=== PATIENT | male | born 1990 | race African-American/Black ===

== ENCOUNTER 2018-02-24 23:44 | Emergency (ER) | payer MEDICAID, MEDICARE ==
[~2018-02-24] VITALS: Ht 180.3 cm; Wt 85.7 kg
[~2018-02-24 23:44] MED LIST: ACET120S27; PHEN-250
[2018-02-25 00:55] LABS: INR 1.02 (0.9-1.15); Partial Thromboplastin Time 29.6 sec (23.78-33.04); Prothrombin Time 10.9 sec (9.27-12.13)
[2018-02-25 01:04] LABS: Alanine Aminotransferase 127 U/L (16-61); Albumin 4.4 g/dL (3.4-5.0); Anion Gap 15 (5-15); Aspartate Aminotransferase 432 U/L (15-37); BUN/Creatinine Ratio 4.6; Blood Urea Nitrogen 3 mg/dL (7-18); Calcium 8.6 mg/dL (8.5-10.1); Carbon Dioxide 24 mmol/L (21-32); Chloride 101 mmol/L (98-107); GFR African American 187 mL/min; GFR Non-African American 154 mL/min; Glucose 98 mg/dL (74-106); Magnesium 1.9 mg/dL (1.6-2.6); Potassium 3.1 mmol/L (3.5-5.1); Sodium 140 mmol/L (136-145)
[2018-02-25 01:08] LABS: Amphetamine Screen, Urine NEGATIVE (NEGATIVE); Barbiturate Scree,Urine NEGATIVE (NEGATIVE); Benzodiazephine Screen, Urine NEGATIVE (NEGATIVE); Cannabinoid Screen, Urine NEGATIVE (NEGATIVE); Cocaine Screen, Urine NEGATIVE (NEGATIVE); Phencyclidine Screen, Urine NEGATIVE (NEGATIVE)
[2018-02-25 01:13] LABS: Alkaline Phosphatase 93 U/L (45-117); Bilirubin, Total 0.9 mg/dL (0.2-1.0); Total Protein 8.2 g/dL (6.4-8.2)
[2018-02-25 01:17] LABS: Opiate Scree,Urine NEGATIVE (NEGATIVE)
[2018-02-25 01:32] VITALS: BP 145/82
[2018-02-25] MEDS ORDERED: PHENYTOIN IV DILANTIN 1,000 MG in SODIUM CHL 0.9% 250 ML IV ONE (02:30)
[2018-02-25] MEDS ORDERED: SODIUM CHLORIDE 0.9% 3,000 ML IV ONE (03:00)
[2018-02-25] MEDS ORDERED: POTASSIUM CHL 20 Meq TABLET PO ONE (03:00)
== END 2018-02-25 03:22 | disposition home or self-care (01) ==
LOC: ER 23:49
DX: F10.129 Alcohol abuse with intoxication, unspecified (principal); E87.6 Hypokalemia; Y90.8 Blood alcohol level of 240 mg/100 ml or more
CPT/HCPCS: 36415; 71046; 80053; 80185; 80307; 80320; 83735; 84443; 84484; 85610; 85730; 93005; 96365; 99284; J1165; J7030; J7050

== ENCOUNTER 2018-05-14 14:28 | Emergency (ER) | payer OTHER ==
[~2018-05-14] VITALS: Ht 180.3 cm; Wt 83.9 kg
[2018-05-14 14:59] VITALS: BP 120/67
== END 2018-05-14 16:28 | disposition home or self-care (01) ==
LOC: ER 14:28
DX: M79.672 Pain in left foot (principal); M79.671 Pain in right foot; F17.210 Nicotine dependence, cigarettes, uncomplicated; Z79.899 Other long term (current) drug therapy
CPT/HCPCS: 73630

== ENCOUNTER 2018-08-05 23:26 | Emergency (ER) | payer OTHER ==
[~2018-08-05] VITALS: Ht 188 cm; Wt 95.3 kg
[2018-08-06 00:21] LABS: Basophils # (auto) 0.1 uL; Eosinophils # (auto) 0 uL; Monocytes # (auto) 0.4 uL; White Blood Cell 3.3 10^3/uL (4.4-10.8)
[2018-08-06 00:23] LABS: Eosinophils % (auto) 0.3 % (0.0-7.0); Hematocrit 44.6 % (41.0-53.0); Hemoglobin 15.4 g/dL (13.5-17.5); Lymphocytes # (auto) 0.8 uL; Lymphocytes % (auto) 23.4 % (10.0-50.0); Mean Corpuscular Hemoglobin 34.9 pg (28.0-32.0); Mean Corpuscular Hgb Conc. 34.6 g/dL (32.0-36.0); Mean Corpuscular Volume 100.9 fL (80.0-100.0); Neutrophils % (auto) 61.3 % (37.0-80.0); Nucleated Red Blood Cells % 0.1 %; Platelet Count (auto) 81 10^3/uL (140-450); Red Blood Cells 4.42 10^6/uL (4.5-5.90); Red Cell Distribution Width 13.5 % (11.8-14.3)
[2018-08-06 00:37] LABS: Albumin 4.5 g/dL (3.4-5.0); BUN/Creatinine Ratio 4.1; Potassium 3.3 mmol/L (3.5-5.1)
[2018-08-06 00:42] LABS: Bilirubin, Total 0.7 mg/dL (0.2-1.0); Total Protein 8.5 g/dL (6.4-8.2)
[2018-08-06] MEDS ORDERED: SODIUM CHLORIDE 0.9% 1,000 ML IV ONE (01:30)
[2018-08-06] MEDS ORDERED: FOLIC ACID 1 MG, MULTIPLE VITAMIN 10 ML, MAGNESIUM SULF SDV 50% 8 MEQ, THIAMINE INJ 100... INJ ONE ×5 (02:00)
[2018-08-06] MEDS ORDERED: PHENYTOIN IV DILANTIN 1,000 MG in SODIUM CHL 0.9% 250 ML IV ONE (02:00)
[2018-08-06] MEDS ORDERED: PHENYTOIN SODIUM 50 MG/ML 5ML INJ VIAL IV ONE (02:27)
[2018-08-06] MEDS ORDERED: PHENYTOIN SODIUM 50 MG/ML 2ML VIAL IV ONE (02:28)
[2018-08-06 04:05] VITALS: BP 145/89
== END 2018-08-06 04:38 | disposition home or self-care (01) ==
LOC: EDBD 23:26 → ER 23:29
DX: G40.909 Epilepsy, unspecified, not intractable, without status epilepticus (principal); F17.210 Nicotine dependence, cigarettes, uncomplicated; F10.229 Alcohol dependence with intoxication, unspecified; Z91.19 Patient's noncompliance with other medical treatment and regimen; Y90.8 Blood alcohol level of 240 mg/100 ml or more
CPT/HCPCS: 36415; 80053; 80185; 80320; 85025; 96365; 99283; J1165; J7030; J7050

== ENCOUNTER 2018-09-07 20:28 | Emergency (ER) | payer OTHER ==
[~2018-09-07] VITALS: Ht 172.7 cm; Wt 81.6 kg
[2018-09-07] MEDS ORDERED: LORazepam 2MG/ML-1ML VIAL IV ONE (21:45)
[2018-09-07 22:06] LABS: Basophils # (auto) 0 uL; Eosinophils # (auto) 0 uL; Eosinophils % (auto) 0.3 % (0.0-7.0); Lymphocytes # (auto) 0.4 uL; Nucleated Red Blood Cells % 0.1 %
[2018-09-07 22:08] LABS: Basophils % (auto) 0.2 % (0.0-2.0); Hematocrit 41.9 % (41.0-53.0); Hemoglobin 14.7 g/dL (13.5-17.5); Lymphocytes % (auto) 6.3 % (10.0-50.0); Mean Corpuscular Hemoglobin 35.1 pg (28.0-32.0); Mean Corpuscular Hgb Conc. 35.2 g/dL (32.0-36.0); Mean Corpuscular Volume 99.9 fL (80.0-100.0); Monocytes # (auto) 0.9 uL; Monocytes % (auto) 14.1 % (0.0-12.0); Neutrophils # (auto) 5.1 uL; Neutrophils % (auto) 79.1 % (37.0-80.0); Platelet Count (auto) 135 10^3/uL (140-450); Red Blood Cells 4.19 10^6/uL (4.5-5.90); Red Cell Distribution Width 13.8 % (11.8-14.3); White Blood Cell 6.4 10^3/uL (4.4-10.8)
[2018-09-07 22:13] LABS: Urine Bacteria NONE SEEN /hpf (None Seen); Urine Blood 1+ /uL (Negative); Urine Hyaline Cast FEW /lpf (0 - 2); Urine Mucus FEW (None Seen); Urine Specific Gravity 1.024 (1.001-1.035); Urine WBC 6 /hpf (0 - 3)
[2018-09-07 22:27] LABS: Salicylate < 1.7 mg/dL (2.8-20.0)
[2018-09-07 22:27] LABS: Alcohol, Urine < 3.0 mg/dL (0-5); Amphetamine Screen, Urine NEGATIVE (NEGATIVE); Barbiturate Scree,Urine NEGATIVE (NEGATIVE); Benzodiazephine Screen, Urine NEGATIVE (NEGATIVE); Cannabinoid Screen, Urine NEGATIVE (NEGATIVE); Cocaine Screen, Urine NEGATIVE (NEGATIVE); Opiate Scree,Urine NEGATIVE (NEGATIVE); Phencyclidine Screen, Urine NEGATIVE (NEGATIVE)
[2018-09-07 22:28] LABS: Acetaminophen < 2.0 ug/mL (10-30)
[2018-09-07] MEDS ORDERED: cefTRIAXone 1GM/50ML D5W 50 ML IV ONE (23:00)
[2018-09-07] MEDS ORDERED: SODIUM CHLORIDE 0.9% 1,000 ML IV ONE (23:00)
[2018-09-07 23:39] LABS: Alanine Aminotransferase 53 U/L (16-61); Albumin 4.2 g/dL (3.4-5.0); Anion Gap 16 (5-15); Aspartate Aminotransferase 127 U/L (15-37); BUN/Creatinine Ratio 8.7; Blood Alcohol < 3.0 mg/dL (0-5); Blood Urea Nitrogen 6 mg/dL (7-18); Calcium 9.8 mg/dL (8.5-10.1); Carbon Dioxide 23 mmol/L (21-32); Chloride 96 mmol/L (98-107); GFR African American 173 mL/min; GFR Non-African American 143 mL/min; Glucose 99 mg/dL (74-106); Potassium 3.1 mmol/L (3.5-5.1); Sodium 135 mmol/L (136-145)
[2018-09-07 23:42] LABS: Alkaline Phosphatase 91 U/L (45-117); Bilirubin, Total 1.1 mg/dL (0.2-1.0); Total Protein 7.9 g/dL (6.4-8.2)
[2018-09-08 01:40] VITALS: BP 136/102
== END 2018-09-08 01:51 | disposition home or self-care (01) ==
LOC: EDBD 20:28 → ER 20:32
DX: F10.239 Alcohol dependence with withdrawal, unspecified (principal); F41.9 Anxiety disorder, unspecified; E86.0 Dehydration; N39.0 Urinary tract infection, site not specified; F17.210 Nicotine dependence, cigarettes, uncomplicated; Y90.9 Presence of alcohol in blood, level not specified
CPT/HCPCS: 36415; 80053; 80307; 80320; 80329; 81001; 85025; 96365; 96375; 99283; J0696; J2060; J7030